=== PATIENT | male | born 1990 | race American Indian/Alaskan Native ===

== ENCOUNTER 2023-01-30 12:39 | Emergency (ER) | payer BC ==
[2023-01-30] MEDS ORDERED: Sodium Chloride 0.9% 10 ML Syringe FLUSH PRN (13:19)
[2023-01-30 13:27] LABS: BASOPHILS ABSOLUTE AUTO 0.03 K/mm3 (0.01-0.08); BASOPHILS PERCENT AUTO 0.6 % (0.1-1.2); EOSINOPHILS ABSOLUTE AUTO 0.15 K/mm3 (0.04-0.54); EOSINOPHILS PERCENT AUTO 2.9 (0.8-7.0); HEMATOCRIT 44.2 % (40.1-51.0); HEMOGLOBIN 15.1 gm/dl (13.7-17.5); LYMPHOCYTES ABSOLUTE AUTO 2.53 K/mm3 (1.32-3.57); LYMPHOCYTES PERCENT AUTO 48.5 % (21.8-53.1); MEAN CORPUSCULAR HEMOGLOBIN 30.3 pg (25.7-32.2); MEAN CORPUSCULAR HGB CONC 34.2 g/dl (32.2-35.5); MEAN CORPUSCULAR VOLUME 88.8 fl (79.0-92.2); MEAN PLATELET VOLUME 10.1 fl (9.4-12.3); MONOCYTES PERCENT AUTO 11.5 % (5.3-12.2); NEUTROPHILS ABSOLUTE AUTO 1.91 K/mm3 (1.78-5.38); NEUTROPHILS PERCENT AUTO 36.5 % (34.0-67.9); PLATELET COUNT,PLT 343 K/mm3 (163-337); RED BLOOD CELL COUNT 4.98 M/mm3 (4.63-6.08); WHITE BLOOD CELL COUNT,WBC 5.22 K/mm3 (4.23-9.07)
[2023-01-30 13:37] LABS: INR 0.98; PROTHROMBIN TIME 10.5 SECONDS (9.7-12.0)
[2023-01-30 13:38] LABS: PTT,PARTIAL THROMBOPLSTIN TIME 25.4 SECONDS (21.7-31.4)
[2023-01-30 13:43] LABS: D-DIMER QUANTITATIVE < 0.19 mg/L (0.19-0.50)
[2023-01-30 13:48] LABS: A/G RATIO 0.9 (1-2); ANION GAP 16.4 (5-15); BILIRUBIN TOTAL 0.3 mg/dL (0.2-1.0); CALCIUM 9.4 mg/dL (8.5-10.1); EST CRCL DRUG DOSING (CG) 129.1 mL/min; POTASSIUM,K 3.4 mEq/L (3.5-5.1); PROTEIN TOTAL,TP 8.7 g/dl (6.4-8.2)
[2023-01-30 14:18] LABS: SLIDE REVIEW NORMAL SMEAR
== END 2023-01-30 14:32 | disposition home or self-care (01) ==
LOC: JD.ED 12:39
DX: I49.8 Other specified cardiac arrhythmias (principal); E66.9 Obesity, unspecified; Z68.41 Body mass index [BMI] 40.0-44.9, adult
CPT/HCPCS: 36415; 71045; 71045-26; 80053; 83735; 83880; 84484; 85025; 85379; 85610; 85730; 93005; 93010; 93246; 99284; 99285